=== PATIENT | male | born 1990 | race Caucasian/White ===

== ENCOUNTER 2017-02-04 09:49 | Emergency (ER) | payer SELFPAY ==
[~2017-02-04] VITALS: Ht 175.3 cm; Wt 84.0 kg
[2017-02-04 10:20] VITALS: BP 118/59
== END 2017-02-04 16:51 | disposition left against medical advice (07) ==
LOC: ER 16:33
DX: M79.603 Pain in arm, unspecified (principal); Z53.21 Procedure and treatment not carried out due to patient leaving prior to being seen by health care provider